=== PATIENT | female | born 1990 | race Caucasian/White ===

== ENCOUNTER → 2017-03-18 | Outpatient (CLI) | payer BC ==
[~2017-03-18] MED LIST: BUPR100T8 PO; CITA40TA4 PO; HYDR25CA PO
[2017-03-20 14:58] LABS: CHLAMYDIA TRACH RNA*** NOT DETECTED (NOT DETECTED); GC (NEIS GONORRHOEAE)RNA** NOT DETECTED (NOT DETECTED)
== END | disposition home or self-care (01) ==
LOC: C.LABMFLN 15:04
PROVIDERS: ATTEND Physician Assistant
DX: Z00.00 Encounter for general adult medical examination without abnormal findings (principal)

== ENCOUNTER → 2017-03-18 | Outpatient (CLI) | payer BC | END | disposition home or self-care (01) | LOC: C.PAPS 07:36 | PROVIDERS: ATTEND Physician Assistant | DX: Z00.00 Encounter for general adult medical examination without abnormal findings (principal) ==